=== PATIENT | female | born 1975 | race Caucasian/White ===

== ENCOUNTER 2017-12-23 16:47 | Emergency (ER) | payer OTHER, SELFPAY ==
--- NOTE | 2017-12-23 17:05 | DI.RAD.S_ITS ---
PROCEDURE: XR CHEST 2V INDICATIONS: shortness of breath/ chest pain TECHNIQUE: 2 views of the chest were acquired. COMPARISON: None. FINDINGS: Surgical changes and devices: None. Lungs and pleura: No pleural effusions or pneumothorax. Lungs are clear. Mediastinum: Mediastinal contours are normal. Heart size is normal. Bones and chest wall: No suspicious bony abnormalities. Soft tissues appear unremarkable. IMPRESSION: No acute cardiopulmonary process is seen. Dictated by: Blake Buckner M.D. on 12/23/2017 at 16:21 Approved by: Blake Buckner M.D. on 12/23/2017 at 16:21
[2017-12-23 17:16] VITALS: BP 156/85; PULSE 93; RESP 18; O2SAT 96
[2017-12-23 17:44] LABS: Add Manual Diff / Slide Review NO; Basophils Percent Auto 0.6 % (0-2); Eosinophils Percent Auto 2.1 % (2-4); Hematocrit 41.2 % (36-46); Hemoglobin 14.4 g/dL (12.0-16.0); Lymphocytes Percent Auto 23.2 % (25-40); Mean Corpuscular HGB Conc 34.9 % (30-36); Mean Corpuscular Hemoglobin 34.9 PG (26-34); Neutrophils Absolute Auto 4400 /uL (3000-5900); Neutrophils Percent Auto 66.1 % (50-75); Platelet Count 179 X10^3/uL (150-400); Red Blood Cell Count 4.12 X10^6/uL (4.0-5.2); Red Cell Distribution Width 12.3 % (11.6-14.8); White Blood Cell Count 6.6 X10^3/uL (4.5-11.0)
[2017-12-23 17:52] LABS: INR 1.1 (0.9-1.3); Prothrombin Time 11.7 SECONDS (10.1-12.7)
[2017-12-23 17:55] LABS: PTT Partial Thromboplastin Tim 32 SECONDS (26.4-36.2)
[2017-12-23 18:02] LABS: Alanine Aminotransferase 93 IU/L (9-52); Albumin 4.4 g/dL (3.5-5.0); Albumin Globulin Ratio 1.5 (1.0-2.8); Alkaline Phosphatase 87 U/L (38-126); Aspartate Aminotransferase 57 IU/L (14-36); BUN Creatinine Ratio 15.6 (6-22); Bilirubin Total 0.5 mg/dL (0.2-1.3); Blood Urea Nitrogen 14 mg/dL (7-17); Calcium 9.6 mg/dL (8.4-10.2); Carbon Dioxide 28 mmol/L (22-32); Chloride 100 mmol/L (98-107); Creatine Kinase 78 U/L (30-135); Estimated Glomerular Filt Rate > 60.0 mL/min (>60); Glucose 97 mg/dL (70-100); HEMOLYSIS < 15 (0-50); Lipase 118 U/L (23-300); Potassium 3.9 mmol/L (3.4-5.1); Sodium 140 mmol/L (137-145); Total Protein 7.4 g/dL (6.3-8.2)
[2017-12-23 18:05] LABS: D Dimer 249 ng/mL (<230)
[2017-12-23 18:15] LABS: Troponin I < 0.012 ng/mL (0.01-0.034)
[2017-12-23 18:21] VITALS: BP 112/73; PULSE 92; RESP 15; O2SAT 97
--- NOTE | 2017-12-23 18:24 | ED.CHESTPAIN ---
HPI - Chest Pain General Chief Complaint: Chest Pain Stated Complaint: SHORTNESS OF BREATH,POUNDING HEAD,TIGHT CHEST Time Seen by Provider: 12/23/17 18:24 Source: patient Mode of arrival: ambulatory Limitations: no limitations History of Present Illness HPI narrative: The patient had on vent this morning of sternal discomfort with dyspnea. The van came on without exertion. Symptoms resolved within several minutes. She is currently asymptomatic. This is her 3rd such event in about 2 weeks. The 1st event happened while she was applying a hair color. She had no signs or symptoms of allergic reaction. She has had no fever, chills or cough. She denies shortness of breath. She has no epigastric pain or vomiting. She has no history of CAD, hypertension, hyperlipidemia, or diabetes. She does smoke 1 cigarette daily. Related Data Home Medications Medication Instructions Recorded Confirmed trazodone 50 - 100 mg PO HSP PRN 12/23/17 12/23/17 Previous Rx's Medication Instructions Recorded bupropion HCl XL 150 mg 24 hr 150 mg PO QDAY #90 tab 12/16/17 tablet, extended release levothyroxine 175 mcg tablet 175 mcg PO QAM #90 tab 12/23/17 Allergies Allergy/AdvReac Type Severity Reaction Status Date / Time No Known Drug Allergies Allergy Verified 12/23/17 17:07 Review of Systems Review of Systems All systems reviewed & are unremarkable except as noted in HPI and below Constitutional Denies chills, Denies fever(s), Denies lethargy and Denies weakness ENT Ears, Nose, Mouth, and Throat: Denies change in voice, Denies dizziness, Denies neck pain and Denies sore throat Cardiovascular Reports chest pain, Denies irregular heart rhythm, Denies lightheadedness, Reports palpitations, Reports dyspnea ( See HPI.), Denies dyspnea on exertion and Denies orthopnea Respiratory Denies cough, Reports dyspnea ( See HPI.), Denies dyspnea on exertion and Denies wheezing Gastrointestinal Gastrointestinal: Denies abdominal pain, Denies change in bowel habits, Denies diarrhea, Denies nausea and Denies vomiting Musculoskeletal Denies neck pain Integumentary/Breasts Denies erythema and Denies rash Neurologic Denies confusion, Denies dizziness and Denies weakness Psychiatric Denies confusion Endocrine Reports palpitations Allergic/Immunologic Denies wheezing [facility] Medical History Hypothyroidism (Acute) Surgical History History of tonsillectomy Status post delivery (01/12/13) Family History Father Age: 62 High cholesterol Mother Age: 63 Hypertension High cholesterol Grandmother High cholesterol Social History Smoking Status: Current every day smoker Exam Initial Vital Signs Initial Vital Signs: Vital Signs Pulse Rate 93 H 12/23/17 17:16 Respiratory Rate 18 12/23/17 17:16 Blood Pressure 156/85 H 12/23/17 17:16 Pulse Oximetry 96 12/23/17 17:16 Const General: cooperative and well developed Nutritional Appearance: well nourished Orientation: alert, awake, oriented x3 and not confused HENMT Head: normocephalic and atraumatic Ears: external ears normal and TM's normal bilaterally Nose: external nose normal and No nasal discharge Face and sinus: sinuses nontender, face symmetric, no sinus tenderness and No dry mucous membranes Mouth: oral mucosae normal and moist mucous membranes Teeth and gingiva: dentition normal Throat: tonsils normal and uvula midline Neck Neck: normal visual inspection, trachea midline, No lymphadenopathy and No JVD Lymphatic: No lymphadenopathy Chest Chest: normal inspection of the chest and No tenderness Resp Effort & Inspection: normal respiratory effort, able to speak in complete sentences, no respiratory distress and no use of accessory muscles Auscultation: clear to auscultation bilaterally, no rales, no rhonchi and no wheezes Cardio Rate: regular rate Rhythm: regular rhythm Heart Sounds: no click, no gallops, no murmurs and no rubs Pulses: normal peripheral pulses GI Inspection: non-distended Palpation: soft, no hepatosplenomegaly, No guarding, No pulsatile mass and No tender Auscultation: normal bowel sounds Back/Spine/Pelvis Back: No CVA tenderness Cervical Spine: cervical ROM normal and No pain with cervical ROM Thoracic/Lumbar Spine: thoracic and lumbar spine normal to inspection Skin General: no rashes or lesions noted Neuro General: alert, oriented x3, gait normal and no focal motor deficits Speech: speech normal Extrem General: full ROM, no clubbing, cyanosis or edema and no calf tenderness Course Orders Ordered: ED Orders 12/23/17 17:05 Chest [XR chest 2V] Stat EKG-12 Lead Stat 12/23/17 17:27 Complete Blood Count AUTO DIFF Stat Comprehensive Metabolic Panel Stat D Dimer Stat Free T4 Free Thyroxine Stat Lipase Stat Partial Thromboplastin Time Stat Prothrombin Time INR Stat TSH w/ Reflex to FT4 Stat Troponin & CK Cardiac Panel Stat Discontinued Medications Aspirin (Aspirin Chew) 324 mg PO NOW ONE Stop: 12/23/17 19:41 Last Admin: 12/23/17 19:48 Dose: 324 mg Vital Signs - 8 hr 12/23/17 17:16 12/23/17 18:21 12/23/17 19:30 Pulse Rate 93 H 92 H 95 H Respiratory Rate 18 15 Blood Pressure [Right Arm] 156/85 H 112/73 109/85 H Pulse Oximetry 96 97 96 MDM - Chest Pain Lab Data Attestation: I reviewed the patient's lab results. TSH: 7.24. Result diagrams: 12/23/17 17:27 12/23/17 17:27 Lab Results 12/23/17 12/23/17 12/23/17 Range/Units 17:27 17:27 17:27 WBC 6.6 (4.5-11.0) X10^3/uL RBC 4.12 (4.0-5.2) X10^6/uL Hgb 14.4 (12.0-16.0) g/dL Hct 41.2 (36-46) % MCV 100.0 (80-100) fL MCH 34.9 H (26-34) PG MCHC 34.9 (30-36) % RDW 12.3 (11.6-14.8) % Plt Count 179 (150-400) X10^3/uL Neut % (Auto) 66.1 (50-75) % Lymph % (Auto) 23.2 L (25-40) % [place] % (Auto) 8.0 (3-14) % Eos % (Auto) 2.1 (2-4) % Baso % (Auto) 0.6 (0-2) % Neut # (Auto) 4400 (1210-6221) /uL PT 11.7 (10.1-12.7) SECONDS INR 1.1 (0.9-1.3) APTT 32 (26.4-36.2) SECONDS D-Dimer (<230) ng/mL Sodium 140 (137-145) mmol/L Potassium 3.9 (3.4-5.1) mmol/L Chloride 100 (98-107) mmol/L Carbon Dioxide 28 (22-32) mmol/L BUN 14 (7-17) mg/dL Creatinine 0.90 (0.52-1.04) mg/dL Estimated GFR > 60.0 (>60) mL/min BUN/Creatinine Ratio 15.6 (6-22) Glucose 97 (70-100) mg/dL Calcium 9.6 (8.4-10.2) mg/dL Total Bilirubin 0.5 (0.2-1.3) mg/dL AST 57 H (14-36) IU/L ALT 93 H (9-52) IU/L Alkaline Phosphatase 87 (38-126) U/L Total Creatine Kinase 78 (30-135) U/L Troponin I < 0.012 (0.01-0.034) ng/mL Total Protein 7.4 (6.3-8.2) g/dL Albumin 4.4 (3.5-5.0) g/dL Globulin 3.0 (1.7-4.1) g/dL Albumin/Globulin Ratio 1.5 (1.0-2.8) Lipase 118 (23-300) U/L TSH (0.47-4.68) uIU/mL Free T4 (0.78-2.19) ng/dL 12/23/17 12/23/17 Range/Units 17:27 17:27 WBC (4.5-11.0) X10^3/uL RBC (4.0-5.2) X10^6/uL Hgb (12.0-16.0) g/dL Hct (36-46) % MCV (80-100) fL MCH (26-34) PG MCHC (30-36) % RDW (11.6-14.8) % Plt Count (150-400) X10^3/uL Neut % (Auto) (50-75) % Lymph % (Auto) (25-40) % [place] % (Auto) (3-14) % Eos % (Auto) (2-4) % Baso % (Auto) (0-2) % Neut # (Auto) (7375-5037) /uL PT (10.1-12.7) SECONDS INR (0.9-1.3) APTT (26.4-36.2) SECONDS D-Dimer 249 H (<230) ng/mL Sodium (137-145) mmol/L Potassium (3.4-5.1) mmol/L Chloride (98-107) mmol/L Carbon Dioxide (22-32) mmol/L BUN (7-17) mg/dL Creatinine (0.52-1.04) mg/dL Estimated GFR (>60) mL/min BUN/Creatinine Ratio (6-22) Glucose (70-100) mg/dL Calcium (8.4-10.2) mg/dL Total Bilirubin (0.2-1.3) mg/dL AST (14-36) IU/L ALT (9-52) IU/L Alkaline Phosphatase (38-126) U/L Total Creatine Kinase (30-135) U/L Troponin I (0.01-0.034) ng/mL Total Protein (6.3-8.2) g/dL Albumin (3.5-5.0) g/dL Globulin (1.7-4.1) g/dL Albumin/Globulin Ratio (1.0-2.8) Lipase (23-300) U/L TSH 7.24 H (0.47-4.68) uIU/mL Free T4 1.05 (0.78-2.19) ng/dL Imaging Data Chest x-ray: Radiologist's impression: Normal. ECG Data Attestation: I personally reviewed and interpreted this ECG as follows: ( EKG: Sinus tachycardia at 101 bpm. Minimal voltage criteria for LVH. No acute ST T wave changes. No ectopy. Normal intervals.) [facility] Narrative Medical decision making narrative: The patient has been asymptomatic since arrival here. She has had multiple episodes. I am going to refer her to her PCM for further testing, perhaps a stress test Discharge Plan Departure Patient Disposition: Home, Self-Care Clinical Impression: Chest pain Instructions: DI for Chest Pain Activity Restrictions/Additional Instructions: Baby aspirin, 1 daily. Given up that last cigarette, you should stop smoking. Follow up with your doctor, I would suggest a cardiac stress test. If symptoms return, return here while symptomatic. Prescriptions: No Action bupropion HCl [Wellbutrin XL] 150 mg tablet extended release 24 hr 150 mg PO QDAY Qty: 90 RF: 0 levothyroxine 175 mcg tablet 175 mcg PO QAM Qty: 90 RF: 0 trazodone 50 mg tablet 50 - 100 mg PO HSP PRN (Reason: insomnia) RF: 0
[2017-12-23 19:18] LABS: TSH w/ Reflex to FT4 7.24 uIU/mL (0.47-4.68)
[2017-12-23 19:30] VITALS: BP 109/85; PULSE 95; O2SAT 96
[2017-12-23 19:43] LABS: Free T4, Direct Thyroxine 1.05 ng/dL (0.78-2.19)
[2017-12-23] MEDS: ASPIRIN 81 MG TAB 324 MG PO (19:48)
[2017-12-23 19:58] VITALS: BP 109/85; PULSE 93; RESP 16; TEMP 36.8; O2SAT 100
== END 2017-12-23 19:59 | disposition home or self-care (01) ==
PROVIDERS: Emergency Medicine; Emergency Provider Emergency Medicine; Family Provider Family Medicine; PCP Family Medicine
DX: R07.89 Other chest pain (principal)
CPT/HCPCS: 71046; 80053; 82550; 82553; 83690; 84439; 84443; 84484; 85025; 85379; 85610; 85730; 93005; 93010; 99283; 99285

== ENCOUNTER → 2018-01-16 12:29 | Outpatient (CLI) | payer OTHER, SELFPAY ==
[2018-01-16 13:04] LABS: Add Manual Diff / Slide Review NO; Basophils Percent Auto 0.6 % (0-2); Eosinophils Percent Auto 4.1 % (2-4); Hematocrit 42.3 % (36-46); Hemoglobin 14.6 g/dL (12.0-16.0); Lymphocytes Percent Auto 26.6 % (25-40); Mean Corpuscular HGB Conc 34.4 % (30-36); Mean Corpuscular Hemoglobin 34.8 PG (26-34); Monocytes Percent Auto 6.4 % (3-14); Neutrophils Absolute Auto 3600 /uL (3000-5900); Neutrophils Percent Auto 62.3 % (50-75); Platelet Count 208 X10^3/uL (150-400); Red Blood Cell Count 4.18 X10^6/uL (4.0-5.2); Red Cell Distribution Width 12.4 % (11.6-14.8); White Blood Cell Count 5.8 X10^3/uL (4.5-11.0)
[2018-01-16 13:18] LABS: Alanine Aminotransferase 208 IU/L (9-52); Albumin 4.3 g/dL (3.5-5.0); Albumin Globulin Ratio 1.3 (1.0-2.8); Alkaline Phosphatase 108 U/L (38-126); Aspartate Aminotransferase 149 IU/L (14-36); BUN Creatinine Ratio 15.7 (6-22); Bilirubin Total 0.4 mg/dL (0.2-1.3); Blood Urea Nitrogen 11 mg/dL (7-17); Calcium 9.5 mg/dL (8.4-10.2); Carbon Dioxide 26 mmol/L (22-32); Chloride 106 mmol/L (98-107); Cholesterol 209 mg/dL (140-199); Estimated Glomerular Filt Rate > 60.0 mL/min (>60); Globulin 3.2 g/dL (1.7-4.1); Glucose 102 mg/dL (70-100); HDL Cholesterol 48 mg/dL (40-60); HEMOLYSIS < 15 (0-50); LDL Cholesterol Calculated 138 mg/dL (<100); Potassium 4.4 mmol/L (3.4-5.1); Sodium 143 mmol/L (137-145); Total Protein 7.5 g/dL (6.3-8.2); Triglycerides 117 mg/dL (35-150)
[2018-01-16 14:30] LABS: Free T4, Direct Thyroxine 0.92 ng/dL (0.78-2.19)
== END ==
PROVIDERS: PCP Family Medicine; Visit Provider Family Medicine
DX: E03.9 Hypothyroidism, unspecified (principal)
CPT/HCPCS: 36415; 80053; 80061; 83036; 84439; 84443; 85025

== ENCOUNTER → 2018-02-24 13:29 | Outpatient (CLI) | payer OTHER, SELFPAY ==
--- NOTE | 2018-02-24 13:31 | DI.MG.S_ITS ---
BILATERAL DIGITAL SCREENING MAMMOGRAM 3D/2D WITH CAD: 02/24/2018 CLINICAL: Routine screening. Family history of breast cancer. Comparison is made to exams dated: 04/19/2016 mammogram and 04/25/2015 mammogram - [facility]. The tissue of both breasts is heterogeneously dense. This may lower the sensitivity of mammography. Current study was also evaluated with a Computer Aided Detection (CAD) system. No significant masses, calcifications, or other findings are seen in either breast. There has been no significant interval change. IMPRESSION: NEGATIVE There is no mammographic evidence of malignancy. A 1 year screening mammogram is recommended.(02/25/2019) This exam was interpreted at Station ID: [id number]. NOTE: For mammograms, a report in lay terms will be sent to the patient. Approximately 15% of breast malignancies will not be visualized mammographically. In the management of a palpable breast mass, a negative mammogram must not discourage biopsy of a clinically suspicious lesion. Electronically Signed By: Jeff brand/blayne:02/25/2018 01:09:15 letter sent: Normal Exam ACR BI-RADS Category 1: Negative 3341F
== END ==
PROVIDERS: Family Provider Family Medicine; PCP Family Medicine; Visit Provider Family Medicine
DX: Z12.31 Encounter for screening mammogram for malignant neoplasm of breast (principal); Z80.3 Family history of malignant neoplasm of breast
CPT/HCPCS: 77063; 77067

== ENCOUNTER → 2019-05-26 16:30 | Outpatient (CLI) | payer OTHER, SELFPAY ==
--- NOTE | 2019-05-26 16:32 | DI.MG.S_ITS ---
BILATERAL DIGITAL SCREENING MAMMOGRAM 3D/2D WITH CAD: 05/26/2019 CLINICAL: Routine screening. Family history of breast cancer. Comparison is made to exams dated: 04/25/2015 mammogram and 04/19/2016 mammogram - [facility]. There are scattered fibroglandular elements in both breasts. Current study was also evaluated with a Computer Aided Detection (CAD) system. No significant masses, calcifications, or other findings are seen in either breast. There has been no significant interval change. IMPRESSION: NEGATIVE There is no mammographic evidence of malignancy. A 1 year screening mammogram is recommended. This exam was interpreted at Station ID: [id number]. NOTE: For mammograms, a report in lay terms will be sent to the patient. Approximately 15% of breast malignancies will not be visualized mammographically. In the management of a palpable breast mass, a negative mammogram must not discourage biopsy of a clinically suspicious lesion. Electronically Signed By: Zeny carrillo/blayne:05/27/2019 08:14:41 letter sent: Normal Exam ACR BI-RADS Category 1: Negative 3341F
== END ==
PROVIDERS: Family Provider Family Medicine; PCP Family Medicine; Visit Provider Family Medicine
DX: Z12.31 Encounter for screening mammogram for malignant neoplasm of breast (principal); Z80.3 Family history of malignant neoplasm of breast
CPT/HCPCS: 77063; 77067

== ENCOUNTER → 2020-01-06 14:53 | Outpatient (CLI) | payer OTHER, SELFPAY ==
[2020-01-06 16:12] LABS: Alanine Aminotransferase 392 IU/L (<35); Albumin 4.6 g/dL (3.5-5.0); Albumin Globulin Ratio 1.1 (1.0-2.8); Alkaline Phosphatase 170 U/L (38-126); Aspartate Aminotransferase 393 IU/L (14-36); BUN Creatinine Ratio 12.5 (6-22); Bilirubin Total 0.6 mg/dL (0.2-1.3); Bilirubin Unconjugated 0.4 mg/dL (0.0-1.1); Blood Urea Nitrogen 9 mg/dL (7-17); C-Reactive Protein Quant 1.1 mg/dL (<1.0); Calcium 9.3 mg/dL (8.4-10.2); Carbon Dioxide 24 mmol/L (22-32); Chloride 102 mmol/L (98-107); Erythrocyte Sedimentation Rate 44 MM/HR (0-20); Estimated Glomerular Filt Rate > 60.0 mL/min (>60); Globulin 4.2 g/dL (1.7-4.1); Glucose 113 mg/dL (70-100); HEMOLYSIS < 15 (0-50); Potassium 4.2 mmol/L (3.4-5.1); Sodium 137 mmol/L (137-145); Total Protein 8.8 g/dL (6.3-8.2)
[2020-01-06 16:41] LABS: Ferritin 549 ng/mL (6-137)
[2020-01-06 17:18] LABS: Thyroid Stimulating Hormone 18.8 uIU/mL (0.47-4.68)
[2020-01-07 07:36] LABS: Alpha 1 Anti Trypsin 191 mg/dL (101-187); Ceruloplasmin 36.6 mg/dL (19.0-39.0); HBsAg Screen Negative (Negative); Hepatitis A Antibody IgM Negative (Negative); Hepatitis B Core Antibody IgM Negative (Negative); Hepatitis C Antibody <0.1 s/co ratio (0.0-0.9)
[2020-01-07 18:36] LABS: ANA Screen, IFA Positive (.)
== END ==
PROVIDERS: Family Provider Family Medicine; PCP Family Medicine; Referring Provider Family Medicine; Visit Provider Family Medicine
DX: R74.8 Abnormal levels of other serum enzymes (principal)
CPT/HCPCS: 36415; 80048; 80074; 80076; 82103; 82390; 82728; 84443; 85651; 86038; 86140

== ENCOUNTER → 2020-01-26 13:42 | Outpatient (CLI) | payer OTHER, SELFPAY ==
--- NOTE | 2020-01-26 13:43 | DI.US.S_ITS ---
PROCEDURE: US ABDOMEN COMPLETE INDICATIONS: ELEVATED LIVER ENZYMES TECHNIQUE: Real-time scanning was performed of the abdominal and retroperitoneal organs, with image documentation. COMPARISON: None. FINDINGS: Liver: Liver is diffusely increased in echogenicity. No focal hepatic abnormalities identified. Normal hepatic size. Gallbladder: Solitary gallstone present and no gallbladder wall thickening or pericholecystic fluid. Biliary ducts: Intrahepatic bile ducts are non-dilated. Extrahepatic bile duct not well seen. Pancreas: Visualized portions of the pancreas are sonographically normal. Spleen: Spleen is normal in size and homogeneous in echotexture. Kidneys: Kidneys are normal in size and echotexture. Right kidney measures 14.2 cm long; left kidney measures 12.3 cm long. No hydronephrosis or nephrolithiasis. No solid masses. Aorta: Not well visualized. Iliacs: Not well visualized. IVC: Not well visualized. Miscellaneous: No free abdominal fluid. IMPRESSION: 1. Increased hepatic echogenicity noted possibly related to hepatic steatosis but other sources of hepatocellular disease cannot be excluded. Recommend clinical correlation. 2. Cholelithiasis without acute cholecystitis. Dictated by: Adama Goldstein [facility] Interpreted: Zeny Cramer MD on 01/26/2020 at 16:59 Approved by: Zeny Cramer M.D. on 01/26/2020 at 18:09
== END ==
PROVIDERS: Family Provider Family Medicine; PCP Family Medicine; Referring Provider Family Medicine; Visit Provider Family Medicine
DX: R74.8 Abnormal levels of other serum enzymes (principal); K80.20 Calculus of gallbladder without cholecystitis without obstruction
CPT/HCPCS: 76700

== ENCOUNTER → 2020-06-02 17:20 | Outpatient (CLI) | payer OTHER, SELFPAY ==
[2020-06-02 19:09] LABS: Hepatitis B Surface Antigen NEGATIVE s/c (NEGATIVE)
[2020-06-06 13:05] LABS: Smooth Muscle Antibody 13 Units (0-19)
== END ==
PROVIDERS: Family Provider Family Medicine; PCP Family Medicine; Referring Provider Internal Medicine Gastroenterology; Visit Provider Internal Medicine Gastroenterology
DX: R79.89 Other specified abnormal findings of blood chemistry (principal)
CPT/HCPCS: 36415; 81256; 83516; 87340

== ENCOUNTER 2020-06-03 08:22 | Outpatient (CLI) | payer OTHER, SELFPAY ==
[2020-06-03] VITALS (14 sets, daily range): BP systolic 100–169; BP diastolic 64–104; PULSE 68–95; RESP 14–20; TEMP 35.7–36.7; O2SAT 94–97; BMI 43.8
--- NOTE | 2020-06-03 | PATH_ITS ---
[facility] Accession Number: [id number] . 01 Material submitted: . liver - LIVER BIOPSY . 01 Clinical history: . ABNORMAL FINDINGS OF BLOOD CHEMISTRY . 02 Diagnosis: Liver, Core Needle Biopsy: Steatosis, predominantly macrovesicular (approximately 40%). Mild perivenular and pericellular fibrosis. No significant portal or lobular inflammation. PAS positive, diastase resistant granules present in periportal hepatocytes. No iron deposition. No evidence of neoplasm. Please see comment. L 06/10/2020 1834 Local . 02 Comment: Although no ballooned hepatocytes are identified, the above findings may meet minimum criteria for a diagnosis of steatohepatitis (Grade 1, Brunt grading system). Small PAS positive diastase resistant globules are seen in some periportal hepatocytes. Further characterization of alpha-1 antitrypsin (A1AT) by DNA analysis, is recommended, as abnormal A1AT variants may accelerate hepatocyte injury. Clinical correlation is recommended to determine if these changes are due to metabolic syndrome, alcohol, or medications. . There may be overestimation of fibrosis due to capsular sampling. As part of routine quality assurance supervisor trim, Dr. Wolf also reviewed this case and agrees with the interpretation. . 02 Electronically signed: . Génesis Gutierrez MD, Pathologist NPI- [id number] . 01 Gross description: . LIVER BIOPSY: Received in formalin are multiple fragment(s) of avila, soft tissue measuring 0.1 x 0.1 x 0.1 cm to 0.8 x 0.1 x 0.1 cm submitted entirely in 1 cassette(s) /BYRON 06/03/2020 2044 Local . 02 Microscopic: . Core biopsies of liver parenchyma show moderate steatosis approximately 40%, predominantly macrovesicular in a uniform distribution. A trichrome stain highlights perivenular and pericellular fibrosis. No ballooned hepatocytes or ground glass hepatocytes are identified. There is no significant lobular inflammation. The portal tracts show no significant inflammation, with only rare eosinophils and no plasma cells identified. Interlobular bile ducts are present in most of the portal tracts examined and are without inflammation. The hepatic arteries and portal veins are unremarkable. There is no hepatocytic or intracanalicular cholestasis. A PAS stain with diastase reveals small abnormal intrahepatocytic globules in periportal hepatocytes. There is no hepatocytic iron deposition (grade 0 of 4). There is no proliferation of an abnormal cell population. . 02 Pathologist provided ICD-10: R74.8, K76.0 . 02 CPT . 804164, 101000, 608093, 039718 Performed at: 01 [facility] [address] [id number] MD Mode Lennon MD Phone: [phone] Performed at: 02 [facility] [id number] [place] [id number] MD Génesis Gutierrez MD Phone: [phone]
--- NOTE | 2020-06-03 | DI.US.S_ITS ---
PROCEDURE: US BIOPSY LIVER Ultrasound-guided liver biopsy with sedation analgesia for 30 minutes. INDICATIONS: LIVER BIOPSY TECHNIQUE: The indications, alternatives, benefits, risks, and complications of the procedure were explained to the patient. Written informed consent was obtained and placed in the chart. Continuous EKG and hemodynamic monitoring was started by trained personnel. Real-time sonography was utilized to choose the site for percutaneous hepatic biopsy. The skin was prepped and draped in the usual sterile fashion. 1% lidocaine was infiltrated down to the hepatic capsule. A coaxial needle was then advanced into the liver under direct sonographic visualization. A biopsy apparatus was then utilized, and core biopsies were obtained. The needle was then withdrawn; a bandage and overlying weight were applied to the biopsy site. COMPARISON: None. FINDINGS: Biopsy site(s): Epigastrium, oblique approach from right paramedian to the midline. Needle: Oz Sonotek biopsy needle set, 20 gauge. Number of passes: 5 passes, through Temno trocar placed initially. Medications: 1% lidocaine for local anaesthesia. IV Versed and Fentanyl for conscious sedation for 30 minutes (see nursing record). Complications: None. IMPRESSION: Successful ultrasound-guided liver biopsy, with pathology results pending. Dictated by: Shubham Cat M.D. on 06/03/2020 at 14:24 Approved by: Shubham Cat M.D. on 06/03/2020 at 14:27
[2020-06-03 08:55] LABS: Add Manual Diff / Slide Review NO; Basophils Absolute Auto 0 /uL (0-100); Basophils Percent Auto 0.8 % (0-2); Eosinophils Absolute Auto 400 /uL (0-450); Hematocrit 42.5 % (36-46); Hemoglobin 14.5 g/dL (12.0-16.0); Lymphocytes Absolute Auto 1800 /uL (1100-4500); Lymphocytes Percent Auto 32.7 % (25-40); Mean Corpuscular HGB Conc 34.1 % (30-36); Mean Corpuscular Hemoglobin 34.9 PG (26-34); Mean Corpuscular Volume 102.3 fL (80-100); Monocytes Absolute Auto 500 /uL (0-900); Monocytes Percent Auto 8.4 % (3-14); Neutrophils Absolute Auto 2800 /uL (1500-7000); Neutrophils Percent Auto 51.1 % (50-75); Platelet Count 181 X10^3/uL (150-400); Red Blood Cell Count 4.15 X10^6/uL (4.0-5.2); Red Cell Distribution Width 12.4 % (11.6-14.8); White Blood Cell Count 5.5 X10^3/uL (4.5-11.0)
[2020-06-03 09:01] LABS: INR 1.1 (0.9-1.3); Prothrombin Time 12.6 SECONDS (10.1-12.7)
[2020-06-03 09:04] LABS: PTT Partial Thromboplastin Tim 44 SECONDS (26.4-36.2)
[2020-06-03] MEDS: MIDAZOLAM 2 MG/2 ML VIAL IV (09:51)
[2020-06-03] MEDS: fentaNYL 100 MCG/2 ML INJ IV (09:52)
--- NOTE | 2020-06-03 11:05 | SUR.PHASEII ---
Pt returned from DI procedure in stable condition. Denies any pain at biopsy site, but states mild discomfort in lower back from lying on procedure table. No N/V/D related to procedure. Currently enjoying coffee.
--- NOTE | 2020-06-03 13:42 | SUR.PHASEII ---
Patient ate 100% of her food tray without difficulty. Denies pain or nausea. Skin pink, warm and dry. Awaiting results of HCT. No needs voiced at this time. VSS.
--- NOTE | 2020-06-03 14:11 | SUR.PHASEII ---
Unable to reach radiologist at this time to report HCT levels.
--- NOTE | 2020-06-03 14:49 | SUR.PHASEII ---
Notified radiologist of HCT repeat level and that patient had stable vital signs. Radiologist approves for patient to go home now. V/U.
== END 2020-06-03 14:51 | disposition home or self-care (01) ==
LOC: OR 08:22
PROVIDERS: Family Provider Family Medicine; PCP Family Medicine; Referring Provider Family Medicine; Visit Provider Internal Medicine Gastroenterology
DX: R79.89 Other specified abnormal findings of blood chemistry (principal); R74.8 Abnormal levels of other serum enzymes
CPT/HCPCS: 47000; 76942; 85014; 85025; 85610; 85730; J2250; J3010

== ENCOUNTER → 2020-06-15 16:36 | Outpatient (CLI) | payer OTHER, SELFPAY ==
--- NOTE | 2020-06-15 | DI.MG.S_ITS ---
BILATERAL DIGITAL SCREENING MAMMOGRAM 3D/2D WITH CAD: 06/15/2020 CLINICAL: Routine screening. Family history of breast cancer. Comparison is made to exams dated: 05/26/2019 mammogram, 02/24/2018 mammogram - [facility], and 04/19/2016 mammogram - [facility]. There are scattered fibroglandular elements in both breasts. Current study was also evaluated with a Computer Aided Detection (CAD) system. No significant masses, calcifications, or other findings are seen in either breast. There has been no significant interval change. IMPRESSION: NEGATIVE There is no mammographic evidence of malignancy. A 1 year screening mammogram is recommended. This exam was interpreted at Station ID: [id number]. NOTE: For mammograms, a report in lay terms will be sent to the patient. Approximately 15% of breast malignancies will not be visualized mammographically. In the management of a palpable breast mass, a negative mammogram must not discourage biopsy of a clinically suspicious lesion. Electronically Signed By: Berhane olsen/blayne:06/15/2020 17:28:14 letter sent: Normal Exam ACR BI-RADS Category 1: Negative 3341F
== END ==
PROVIDERS: Family Provider Family Medicine; PCP Family Medicine; Referring Provider Family Medicine; Visit Provider Family Medicine
DX: Z12.31 Encounter for screening mammogram for malignant neoplasm of breast (principal); Z80.3 Family history of malignant neoplasm of breast
CPT/HCPCS: 77063; 77067

== ENCOUNTER → 2022-02-07 15:03 | Outpatient (CLI) | payer OTHER, SELFPAY ==
--- NOTE | 2022-02-07 15:05 | DI.MG.S_ITS ---
BILATERAL DIGITAL SCREENING MAMMOGRAM 3D/2D WITH CAD: 02/07/2022 CLINICAL: Routine screening. Family history of breast cancer. Comparison is made to exams dated: 06/15/2020 mammogram, 05/26/2019 mammogram, and 02/24/2018 mammogram - [facility]. There are scattered areas of fibroglandular density in both breasts (category b / 25%-50% glandular tissue). Current study was also evaluated with a Computer Aided Detection (CAD) system. No significant masses, calcifications, or other findings are seen in either breast. There has been no significant interval change. IMPRESSION: NEGATIVE There is no mammographic evidence of malignancy. A 1 year screening mammogram is recommended. Based on the Tyrer Cuzick model (a risk assessment model) the patient's lifetime risk is 12.9% and her 10 year risk is 2.8%. According to the ACR, ACS, and NCCN guidelines, an annual breast MRI exam along with mammogram is recommended if the patient's lifetime risk is 20% or greater. This exam was interpreted at Station ID: [id number]. NOTE: For mammograms, a report in lay terms will be sent to the patient. Approximately 15% of breast malignancies will not be visualized mammographically. In the management of a palpable breast mass, a negative mammogram must not discourage biopsy of a clinically suspicious lesion. Electronically Signed By: Leo lam/blayne:02/07/2022 17:29:36 letter sent: Normal Exam ACR BI-RADS Category 1: Negative 3341F
== END ==
PROVIDERS: Family Provider Family Medicine; PCP Family Medicine; Referring Provider Physician Assistant; Visit Provider Physician Assistant
DX: Z12.31 Encounter for screening mammogram for malignant neoplasm of breast (principal); Z80.3 Family history of malignant neoplasm of breast
CPT/HCPCS: 77063; 77067

== ENCOUNTER → 2022-02-20 16:14 | Outpatient (CLI) | payer OTHER, SELFPAY ==
--- NOTE | 2022-02-20 16:17 | DI.US.S_ITS ---
PROCEDURE: US ABDOMEN COMPLETE INDICATIONS: Lower right sided abdominal pain TECHNIQUE: Real-time scanning was performed of the abdominal and retroperitoneal organs, with image documentation. COMPARISON: [facility], , US ABDOMEN COMPLETE, 01/26/2020, 14:10. FINDINGS: Study limited secondary to patient scanning characteristics. Liver: The liver demonstrates diffusely increased echotexture without focal abnormalities consistent with chronic hepatocellular disease/hepatic steatosis. Liver is enlarged measuring 22.6 cm. Gallbladder: Redemonstration of gallstones measuring up to 2.0 cm in size. No wall thickening. No pericholecystic fluid. Negative sonographic Bernal's sign. Biliary ducts: Intrahepatic bile ducts are non-dilated. Extrahepatic bile duct caliber measures 4 mm. Normal is 6-7 mm or less in diameter, or 10 mm or less post-cholecystectomy. Pancreas: Pancreas is not well seen. Spleen: Spleen is mildly enlarged measuring 15.0 cm in size. Kidneys: Right kidney measures 12.5 cm in length. Left kidney measures 13.1 cm in length. Possible prominent right renal pelvis. No gross hydronephrosis. No evidence for hydronephrosis on the left. No definite mass lesions identified in either kidney. Aorta: Not well visualized Iliacs: Not well visualized IVC: Not well visualized Miscellaneous: No free abdominal fluid. IMPRESSION: Limited evaluation secondary to patient scanning characteristics. The mildly enlarged liver liver demonstrates diffusely increased echotexture without focal abnormalities consistent with chronic hepatocellular disease/hepatic steatosis. Consider correlation with LFTs. Redemonstration of cholelithiasis without sonographic evidence for acute cholecystitis. Possible prominent right renal pelvis without radha hydronephrosis. Dictated by: Berhane Juarez M.D. on 02/21/2022 at 8:52 Approved by: Berhane Juarez M.D. on 02/21/2022 at 8:56
--- NOTE | 2022-02-20 16:17 | DI.US.S_ITS ---
PROCEDURE: US PELVIC COMPLETE INDICATIONS: Lower right sided abdominal pain TECHNIQUE: Real-time scanning was performed of the pelvic organs, with image documentation. Additional endovaginal scanning was necessary due to incomplete visualization of the adnexal and endometrial structures by transabdominal scanning. COMPARISON: None. FINDINGS: Evaluation is limited secondary to patient scanning characteristics. Uterus: Uterus is anteverted and normal in size at 7.4 x 4.1 x 5.4 cm. The myometrium is mildly heterogeneous without focal intrauterine lesions. The endometrium measures approximately 3 mm combined thickness but is difficult to visualize secondary to shadowing from scar. Ovaries: Bilateral ovaries not visualized on this exam Other: No pathologic free abdominal or pelvic fluid. IMPRESSION: Limited evaluation of the pelvis secondary to patient scanning characteristics. No acute abnormalities identified in the pelvis. However, the ovaries are not visualized on this examination. We strive to produce accurate, complete, and clear reports of imaging services. To assist us in improving patient care, this report was composed using standard report templates and voice recognition software. Therefore, it may contain abnormal punctuation, insertions and/or omissions. Occasional wrong-word or sound-alike substitutions may occur. Though we review the report and make efforts to correct it, we do recommend that the report be read carefully in proper context to recognize any text inaccuracies. Dictated by: Berhane Juarez M.D. on 02/21/2022 at 8:48 Approved by: Berhane Juarez M.D. on 02/21/2022 at 8:52
== END ==
PROVIDERS: Family Provider Family Medicine; PCP Family Medicine; Referring Provider Physician Assistant; Visit Provider Physician Assistant
DX: K80.20 Calculus of gallbladder without cholecystitis without obstruction (principal); R16.2 Hepatomegaly with splenomegaly, not elsewhere classified; R10.10 Upper abdominal pain, unspecified; R10.31 Right lower quadrant pain
CPT/HCPCS: 76700; 76830; 76856

== ENCOUNTER → 2023-04-01 14:50 | Outpatient (CLI) | payer OTHER, SELFPAY ==
--- NOTE | 2023-04-01 14:51 | DI.MG.S_ITS ---
BILATERAL DIGITAL SCREENING MAMMOGRAM 3D/2D WITH CAD: 04/01/2023 CLINICAL: Routine screening. Family history of breast cancer. Comparison is made to exams dated: 02/07/2022 mammogram, 06/15/2020 mammogram, and 05/26/2019 mammogram - [facility]. There are scattered areas of fibroglandular density in both breasts (category b / 25%-50% glandular tissue). Current study was also evaluated with a Computer Aided Detection (CAD) system. There is an asymmetry in the left breast at 12 o'clock middle depth. This is more prominent. No other significant masses, calcifications, or other findings are seen in either breast. IMPRESSION: INCOMPLETE: NEEDS ADDITIONAL IMAGING EVALUATION The asymmetry in the left breast is indeterminate. Additional views with possible ultrasound are recommended. Based on the Tyrer Cuzick model (a risk assessment model) the patient's lifetime risk is 12.8% and her 10 year risk is 2.9%. According to the ACR, ACS, and NCCN guidelines, an annual breast MRI exam along with mammogram is recommended if the patient's lifetime risk is 20% or greater. This exam was interpreted at Station ID: [id number]. NOTE: For mammograms, a report in lay terms will be sent to the patient. Approximately 15% of breast malignancies will not be visualized mammographically. In the management of a palpable breast mass, a negative mammogram must not discourage biopsy of a clinically suspicious lesion. Electronically Signed By: Ponce Grewal M.D. acr/:04/02/2023 10:44:30 letter sent: Additional Imaging Needed ACR BI-RADS Category 0: Incomplete 3340F
== END ==
PROVIDERS: Family Provider Family Medicine; PCP Family Medicine; Referring Provider Family Medicine; Visit Provider Family Medicine
DX: Z12.31 Encounter for screening mammogram for malignant neoplasm of breast (principal); Z80.3 Family history of malignant neoplasm of breast
CPT/HCPCS: 77063; 77067

== ENCOUNTER → 2024-12-14 13:59 | Outpatient (CLI) | payer OTHER, SELFPAY ==
[2024-12-14 14:27] LABS: Add Manual Diff / Slide Review NO; Hematocrit 41.9 % (36-46); Hemoglobin 14.6 g/dL (12.0-16.0); Lymphocytes Absolute Auto 1100 /uL (1100-4500); Mean Corpuscular HGB Conc 34.8 % (30-36); Mean Corpuscular Hemoglobin 36.1 PG (26-34); Mean Corpuscular Volume 103.9 fL (80-100); Platelet Count 79 X10^3/uL (150-400)
[2024-12-14 14:35] LABS: Hemoglobin A1C% w Est Avg Glu 5.0 % (4.0-6.0)
[2024-12-14 14:44] LABS: Alanine Aminotransferase 76 IU/L (<35); Albumin 4.6 g/dL (3.5-5.0); Albumin Globulin Ratio 1.1 (1.0-2.8); Alkaline Phosphatase 118 U/L (38-126); Blood Urea Nitrogen 6 mg/dL (7-17); Calcium 9.4 mg/dL (8.4-10.2); Carbon Dioxide 24 mmol/L (22-32); Chloride 105 mmol/L (98-107); Cholesterol 201 mg/dL (140-199); Estimated Glomerular Filt Rate > 60 mL/min (>60); Globulin 4.2 g/dL (1.7-4.1); Glucose 113 mg/dL (70-99); HDL Cholesterol 45 mg/dL (40-60); HEMOLYSIS < 15 (0-50); Iron 109 ug/dL (37-170); Potassium 4.2 mmol/L (3.4-5.1); Sodium 139 mmol/L (137-145); Total Protein 8.8 g/dL (6.3-8.2); Triglycerides 102 mg/dL (35-150)
[2024-12-14 14:56] LABS: Percent Iron Saturation 28 % (15-50); Total Iron Binding Capacity 383 ug/dL (265-497); Transferrin 310 mg/dL (206-381)
[2024-12-14 15:01] LABS: Vitamin D 25 Hydroxy (D3) 45.9 ng/mL (30.0-100.0)
[2024-12-14 15:03] LABS: Free T3, Triiodothyronine Free 3.37 pg/mL (2.77-5.27); Free T4, Direct Thyroxine 0.93 ng/dL (0.78-2.19)
[2024-12-14 15:17] LABS: Thyroid Stimulating Hormone 12.8 uIU/mL (0.47-4.68)
[2024-12-14 15:21] LABS: Ferritin 154 ng/mL (11-264)
[2024-12-14 15:53] LABS: Folate 8.0 ng/mL (2.76-20.0); Vitamin B12 632 pg/mL (239-931)
== END ==
PROVIDERS: Family Provider Family Medicine; PCP Student in an Organized Health Care Education/Training Program; Referring Provider Student in an Organized Health Care Education/Training Program; Visit Provider Student in an Organized Health Care Education/Training Program
DX: Z00.01 Encounter for general adult medical examination with abnormal findings (principal); L65.9 Nonscarring hair loss, unspecified; E03.9 Hypothyroidism, unspecified
CPT/HCPCS: 36415; 80053; 80061; 82306; 82607; 82728; 82746; 83036; 83540; 83550; 84439; 84443; 84481; 85025

== ENCOUNTER → 2024-12-14 14:20 | Outpatient (CLI) | payer OTHER, SELFPAY ==
--- NOTE | 2024-12-14 14:21 | DI.MG.S_ITS ---
MM screening mammo BI: 12/14/2024. BI-RADS: 1 CLINICAL: 49-year old female for bilateral screening mammogram. Tyrer-Cuzick lifetime risk of 15.1%. Current reported family history of breast cancer: mother. PRIOR EXAMS 04/01/2023, 02/07/2022, 06/15/2020, 05/26/2019. MAMMOGRAPHY TECHNIQUE: 2D and 3D (tomosynthesis) digital mammographic views obtained, with additional images as needed for full coverage. Current study was also evaluated with a Computer Aided Detection (CAD) system. DENSITY B. There are scattered areas of fibroglandular density. MAMMOGRAPHY FINDINGS Bilateral: No suspicious mass, asymmetry, microcalcification, or other abnormality seen. No significant change from comparison. IMPRESSION: * No evidence of malignancy. RECOMMENDATIONS Bilateral * Annual screening mammography. OVERALL ASSESSMENT CATEGORY BI-RADS-1: Negative. The [employer] recommends annual screening mammography beginning at age 40 for women with average risk of breast cancer. ELECTRONICALLY SIGNED: Gema Han M.D. on 12/14/2024 at 04:59:26 PM PT Interpreting Station ID: [id number]
== END ==
PROVIDERS: Family Provider Family Medicine; PCP Student in an Organized Health Care Education/Training Program; Referring Provider Family Medicine; Visit Provider Family Medicine
DX: Z12.31 Encounter for screening mammogram for malignant neoplasm of breast (principal); Z80.3 Family history of malignant neoplasm of breast
CPT/HCPCS: 77063; 77067

== ENCOUNTER 2025-03-01 13:44 | Day surgery (SDC) | payer OTHER, SELFPAY ==
--- NOTE | 2025-03-01 | PATH_ITS ---
[facility] Accession Number: [id number] No. of containers..01 Tissue . 01 Material submitted: . colon - COLON, TRANSVERSE POLYP . 01 Diagnosis: TRANSVERSE COLON: Sessile serrated adenoma. MRV 03/10/2025 1543 Local . 01 Electronically signed: . Wanda Campos DO, Pathologist NPI- [id number] . 01 Gross description: . Received one formalin-filled container, labeled with the patient's name and labeled transverse colon polyp are three fragments of avila, soft tissue which range in size from 0.1 x 0.1 x 0.1 cm to 0.3 x 0.2 x 0.1 cm. All fragments are totally submitted in one cassette. ([id number]) /ANNI 03/09/2025 0331 Local . 01 Pathologist provided ICD-10: Z12.11 . 01 CPT . 722174 Specimen Comment: A courtesy copy of this report has been sent to [phone] Performed at: [address] [id number] MD Mode Lennon MD Phone: [phone]
[2025-03-01] MEDS: LACTATED RINGERS 1,000 ML 42 ML IV (13:58)
[2025-03-01 14:07] VITALS: BP 147/80; PULSE 62; RESP 16; TEMP 36.2; O2SAT 98
--- NOTE | 2025-03-01 14:52 | PM.OP.COLON ---
Operative Date/Time/Diagnoses Date of procedure: 03/01/25 Time of procedure: 15:30 Pre-op diagnosis: See indication and findings Post-op diagnosis: same Procedure & Clinicians Study performed: Colonoscopy Same procedure(s) as scheduled: Yes Indications: For screening colonoscopy Surgeon: Helena Erickson Anesthesia Type: Other Procedure Notes Procedure in detail: After informed consent was obtained the patient was placed in left lateral decubitus position. The video colonoscope was introduced rectum slowly advanced cecum. Preparation was good. On slow withdrawal mucosa was carefully examined. The scope was removed. The patient tolerated procedure well. Blood loss none Complications none Sedation mac Findings One. 1 cm sessile polyp in mid transverse colon partially resected and specimen lost. Area was tattooed with spot. 2 otherwise negative colonoscopy to cecum I would suggest: Have follow-up colonoscopy sometime within 12 months to evaluate this area see if there is anything more to be removed from the site.
[2025-03-01 15:00] VITALS: BP 89/54; PULSE 64; RESP 14; TEMP 36.2; O2SAT 93
[2025-03-01 15:05] VITALS: BP 95/55; PULSE 54; RESP 15; O2SAT 94
[2025-03-01 15:15] VITALS: BP 103/55; PULSE 54; RESP 25; O2SAT 95
--- NOTE | 2025-03-24 15:21 | PM.HP.IH.1 ---
History of Present Illness History of Present Illness Date Patient Seen: 03/01/25 Time Patient Seen: 15:30 Chief complaint: Colonoscopy [facility] Medical History (Updated 03/24/25 @ 15:24 by Helena Erickson MD) Seasonal allergies Depression History of seizure History of epilepsy Chicken pox (~1979) Hypothyroidism (~1995) Surgical History Anesthesia Status post delivery (01/12/13) History of tonsillectomy (~1980) Family History Father Age: 69 High cholesterol Diabetes mellitus Mother Age: 70 Hypertension High cholesterol Grandmother High cholesterol Diabetes mellitus Grandmother No problems noted. Social History (Updated 12/23/17 @ 19:35 by Yg Adam MD) marital status: household members: spouse alcohol intake: current substance use type: does not use Meds Home Medications and Allergies Home Medications ?Medication ?Instructions ?Recorded ?Confirmed ?Type levothyroxine 75 mcg tablet 75 mcg PO DAILY #90 tabs 03/18/25 Rx propranolol 10 mg tablet 20 mg (2 x 10 mg) PO BID PRN 03/18/25 Rx anxiety #60 tabs venlafaxine 37.5 mg 37.5 mg PO DAILY #90 caps 03/18/25 Rx capsule,extended release 24 hr Allergies Allergy/AdvReac Type Severity Reaction Status Date / Time No Known Drug Allergies Allergy Verified 12/14/24 13:29 Exam Vital Signs (past 8 hours): Oxygen Delivery Method Room Air Narrative Exam Narrative: oropharnx free of lesion Assessment & Plan Assessment and plan (1) Encounter for screening colonoscopy: Status: Acute Assessment & Plan narrative: Needs colonsocopy for CRC screening Time-Based Coding :: [TOTAL MINUTES] spent with patient and on the chart (including review of chart, obtaining history, exam, reviewing outside data, placing orders, documenting exam and treatment plan, and counseling patient) on [DATE]. PROFEE Buttermaker Helper Document charge(s): No
== END 2025-03-01 15:30 | disposition home or self-care (01) ==
PROVIDERS: PCP Student in an Organized Health Care Education/Training Program; Referring Provider Internal Medicine Gastroenterology; Visit Provider Internal Medicine Gastroenterology
PROC: 0DJD8ZZ Inspection of Lower Intestinal Tract, Via Natural or Artificial Opening Endoscopic (ICD-10-PCS; CPT 45378; principal; 2025-03-01 15:00)
DX: Z12.11 Encounter for screening for malignant neoplasm of colon (principal); D12.3 Benign neoplasm of transverse colon; E03.9 Hypothyroidism, unspecified; F32.A Depression, unspecified
CPT/HCPCS: 45381; 45380; J2704; J7120

== ENCOUNTER → 2025-03-25 16:28 | Outpatient (CLI) | payer OTHER, SELFPAY ==
[2025-03-25 17:30] LABS: Add Manual Diff / Slide Review NO; Hematocrit 39.9 % (36-46); Hemoglobin 13.8 g/dL (12.0-16.0); Lymphocytes Absolute Auto 1100 /uL (1100-4500); Mean Corpuscular HGB Conc 34.5 % (30-36); Mean Corpuscular Hemoglobin 35.6 PG (26-34); Mean Corpuscular Volume 103.2 fL (80-100); Platelet Count 72 X10^3/uL (150-400)
[2025-03-25 18:21] LABS: Alanine Aminotransferase 45 IU/L (<35); Albumin 4.4 g/dL (3.5-5.0); Albumin Globulin Ratio 1.2 (1.0-2.8); Alkaline Phosphatase 114 U/L (38-126); Blood Urea Nitrogen 7 mg/dL (7-17); Calcium 8.9 mg/dL (8.4-10.2); Carbon Dioxide 23 mmol/L (22-32); Chloride 106 mmol/L (98-107); Estimated Glomerular Filt Rate > 60 mL/min (>60); Globulin 3.6 g/dL (1.7-4.1); Glucose 105 mg/dL (70-99); HEMOLYSIS < 15 (0-50); Potassium 4.1 mmol/L (3.4-5.1); Sodium 139 mmol/L (137-145); Total Protein 8.0 g/dL (6.3-8.2)
[2025-03-25 18:37] LABS: Free T3, Triiodothyronine Free 2.94 pg/mL (2.77-5.27); Free T4, Direct Thyroxine 1.08 ng/dL (0.78-2.19)
[2025-03-25 18:50] LABS: Thyroid Stimulating Hormone 8.04 uIU/mL (0.47-4.68)
== END ==
PROVIDERS: PCP Student in an Organized Health Care Education/Training Program; Referring Provider Student in an Organized Health Care Education/Training Program; Visit Provider Student in an Organized Health Care Education/Training Program
DX: E03.9 Hypothyroidism, unspecified (principal); R74.8 Abnormal levels of other serum enzymes; D69.6 Thrombocytopenia, unspecified; F10.90 Alcohol use, unspecified, uncomplicated
CPT/HCPCS: 36415; 80053; 84439; 84443; 84481; 85025